=== PATIENT | female | born 1935 | race Caucasian/White ===

== ENCOUNTER 2017-10-07 16:55 | Inpatient (IN) | payer MEDICARE, OTHER ==
[~2017-10-07] VITALS: Ht 162.6 cm; Wt 62.8 kg
[~2017-10-07 16:55] MED LIST: ACET325 PO; ALBU.083IS; ALBU90OI6 INH; ALPR.25 PO; ALPR.5; ALPR1; ASPI81CH PO; ASPI81EC PO; AZIT250 PO; BENZ100A PO; BUDE.25; BUDE.25 NEB; BUME1 PO; Biscolax10 MG PR; CARB150 PO; CEPH500 PO; CHOL10002; CHOL10002 PO; CLIN300 PO; CLOB.05TO TOP; CODGUAEL PO; CVS DISPOSABLE399 ML PR; CYAN500 PO; CYCL10 PO; Calcium Carb 51 EACH PO; Calcium Carbon500 MG PO; Calmoseptine Oi71 GM TP; Carbidopa-Levo1 EAC4 PO; DILT180ER PO; Evoxac30 MG PO; FENT25TP TOP; FEXPSEER; FISH1000; FLUO20; FLUO20 PO; FLUSAL5005; FLUT1DIS8 INH; FURO20 PO; G-FENESIN400 MG PO; GLUCHON; GUAIFENESIN DM1 EACH PO; HYDACE5 PO; HYDACE7.5 PO; HYDGUAL120 PO; Hair, Skin & N1 EACH PO; INS70/30PN SC; IPRAIS NEB; LEVE500 PO; LEVO750 PO; LISI5 PO; LISINOPRIL PO; LOPE2C PO; LOSA50 PO; LOSHYD; MAGCHL64ER PO; METF500 PO; MONT10T PO; MULTIVITAMIN PO; MULVITB&C PO; MULVITMINF; Milk Of Ma400 MG/5 M PO; NAPR250; NAPR500 PO; NAPR500EC PO; Norco 5-325 Ta1 EACH PO; OLME20; OMEP20ER; OMEP20ER PO; OTC STOOL SOFTENER; OXYACE5T PO; OXYB5 PO; PANT20; PRED10 PO; PRED20; PRED20 PO; PRIM50 PO; Prozac20 MG; RXCYCL10 PO; RXHYDACE PO; RXPRED10; SENN187 PO; SIMV40 PO; SPIR50 PO; THEO300ERA PO; THEO300ERB; UBID10; Ultram50 MG PO; VALS80; VENLAFAXINE HCL75 MG PO; VITAMIN D3 PO; VITAMIN D32000 UNIT PO; VITB100 PO; Vitamin B Comple1 EA PO; WARF4 PO; XARELTO15 MG PO; XARELTO20 MG PO; Zofran Odt8 MG SL
[2017-10-07 17:25] LABS: Calcium, Ionized (POC) 1.38 mmol/L (1.10-1.46); Chloride (POC) 126 mmol/L (98-108); Creatinine (POC) 1.2 mg/dL (0.6-1.0); Glucose (ISTAT POC) 175 mg/dL (70-99); Hemoglobin (POC) 16.7 g/dL (12.0-16.0); Potassium (POC) 3.3 mmol/L (3.5-5.5); Sodium (POC) 162 mmol/L (135-148); Total CO2 (POC) 27 mmol/L (21-32)
[2017-10-07 17:35] LABS: BASOPHILS ABSOLUTE AUTO 0.11 K/mm3 (0.00-0.23); BASOPHILS PERCENT AUTO 1 % (0-2); EOSINOPHILS PERCENT AUTO 0 % (0-6); Hematocrit 53.9 % (33.0-51.0); IMMATURE GRAN ABSOLUTE AUTO 0.51 K/mm3 (0.00-0.10); IMMATURE GRAN PERCENT AUTO 3 % (0-1); LYMPHOCYTES ABSOLUTE AUTO 2.28 K/mm3 (0.84-5.20); LYMPHOCYTES PERCENT AUTO 13 % (21-46); MONOCYTES ABSOLUTE AUTO 1.91 K/mm3 (0.16-1.47); MONOCYTES PERCENT AUTO 11 % (4-13); Mean Corpuscular HGB 27.4 pg (26.0-34.0); Mean Corpuscular HGB Conc 29.7 g/dL (31.5-36.5); Mean Platelet Volume 10.7 fL (9.1-12.4); NEUTROPHILS ABSOLUTE AUTO 13.34 K/mm3 (1.96-9.15); NEUTROPHILS PERCENT AUTO 74 % (41-73); Platelet Count 239 K/mm3 (150-400); RDW Coefficient Variation 16.6 % (11.7-14.2); RDW Standard Deviation 56.3 fL (35.1-46.3); Red Blood Cell Count 5.83 M/mm3 (3.80-5.20); White Blood Cell Count 18.15 K/mm3 (4.00-11.30)
[2017-10-07 17:37] LABS: Mean Corpuscular Volume 93 fL (80-100)
[2017-10-07 18:00] LABS: Source, Urine Catheter
[2017-10-07] MEDS ORDERED: ATOR20 PO (18:01)
[2017-10-07 18:15] LABS: Appearance, Urine Cloudy (Clear); Bilirubin, Urine Neg (Neg); Blood, Urine 5+ (Neg); Color, Urine Yellow (P-Yellow); Glucose Qualitative, Urine Neg (Neg); Ketones, Urine Neg (Neg); Leukocyte Esterase, Urine 3+ (Neg); Nitrite, Urine Neg (Neg); Protein, Urine 2+ (Neg); Specific Gravity, Urine 1.025 (1.003-1.022); Urobilinogen, Urine 1+ (Normal)
[2017-10-07 18:38] LABS: White Blood Cells, Urine TNTC /hpf (0-5)
[2017-10-07 18:39] LABS: Bacteria Many /hpf; Squamous Epithelial Cells Mod /hpf (Few)
[2017-10-07 18:59] LABS: Troponin I 0.027 ng/mL (0.000-0.040)
[2017-10-07 19:08] LABS: Albumin, Blood 3.1 g/dL (3.4-5.0); Albumin/Globulin Ratio 0.7 (0.8-1.8); Bilirubin, Total 0.7 mg/dL (0.1-1.0); Bun/Creatinine Ratio 56.3 (12.0-20.0); Calcium, Blood 10.6 mg/dL (8.5-10.1); Creatinine, Blood 1.03 mg/dL (0.40-1.00); Globulin, Blood 4.2 g/dL (2.2-4.0); Potassium, Blood 3.2 mmol/L (3.5-5.5); Total Protein, Blood 7.3 g/dL (6.4-8.2)
[2017-10-07] MEDS ORDERED: FAMO20 PO (19:58)
[2017-10-08 01:45] LABS: BASOPHILS ABSOLUTE AUTO 0.05 K/mm3 (0.00-0.23); BASOPHILS PERCENT AUTO 0 % (0-2); EOSINOPHILS ABSOLUTE AUTO 0.02 K/mm3 (0.00-0.68); EOSINOPHILS PERCENT AUTO 0 % (0-6); Hematocrit 49.6 % (33.0-51.0); Hemoglobin 14.8 g/dL (11.5-16.0); IMMATURE GRAN ABSOLUTE AUTO 0.56 K/mm3 (0.00-0.10); IMMATURE GRAN PERCENT AUTO 3 % (0-1); LYMPHOCYTES ABSOLUTE AUTO 1.98 K/mm3 (0.84-5.20); LYMPHOCYTES PERCENT AUTO 12 % (21-46); MONOCYTES PERCENT AUTO 10 % (4-13); Mean Corpuscular HGB 27.7 pg (26.0-34.0); Mean Corpuscular HGB Conc 29.8 g/dL (31.5-36.5); Mean Corpuscular Volume 93 fL (80-100); Mean Platelet Volume 10.8 fL (9.1-12.4); NEUTROPHILS ABSOLUTE AUTO 12.48 K/mm3 (1.96-9.15); NEUTROPHILS PERCENT AUTO 75 % (41-73); Platelet Count 191 K/mm3 (150-400); RDW Coefficient Variation 16.5 % (11.7-14.2); RDW Standard Deviation 55.8 fL (35.1-46.3); Red Blood Cell Count 5.35 M/mm3 (3.80-5.20); White Blood Cell Count 16.69 K/mm3 (4.00-11.30)
[2017-10-08 02:07] LABS: Alanine Aminotransfer (ALT/SGP 41 U/L (12-78); Albumin, Blood 2.8 g/dL (3.4-5.0); Albumin/Globulin Ratio 0.7 (0.8-1.8); Alk Phos 93 U/L (50-136); Anion Gap 6 mmol/L (6-16); Aspartate Aminotrans (AST/SGOT 34 U/L (12-37); Bilirubin, Total 0.5 mg/dL (0.1-1.0); Blood Urea Nitrogen 51 mg/dL (8-24); Bun/Creatinine Ratio 60.7 (12.0-20.0); CO2, Blood 28 mmol/L (21-32); CPK Creatine Kinase 112 U/L (26-193); Calcium, Blood 9.8 mg/dL (8.5-10.1); Chloride, Blood 124 mmol/L (98-108); Creatinine, Blood 0.84 mg/dL (0.40-1.00); Globulin, Blood 4.1 g/dL (2.2-4.0); Glomerular Filtration Rate >60 (60-); Glucose, Blood 187 mg/dL (70-99); Potassium, Blood 3.7 mmol/L (3.5-5.5); Sodium, Blood 158 mmol/L (136-145); Total Protein, Blood 6.9 g/dL (6.4-8.2)
[2017-10-08 09:41] LABS: Anion Gap 6 mmol/L (6-16); Blood Urea Nitrogen 46 mg/dL (8-24); Bun/Creatinine Ratio 57.5 (12.0-20.0); CO2, Blood 28 mmol/L (21-32); CPK Creatine Kinase 129 U/L (26-193); Calcium, Blood 10.1 mg/dL (8.5-10.1); Chloride, Blood 122 mmol/L (98-108); Glomerular Filtration Rate >60 (60-); Glucose, Blood 173 mg/dL (70-99); Potassium, Blood 3.6 mmol/L (3.5-5.5); Sodium, Blood 156 mmol/L (136-145); Troponin I 0.024 ng/mL (0.000-0.040)
[2017-10-08 13:28] LABS: Anion Gap 4 mmol/L (6-16); Blood Urea Nitrogen 44 mg/dL (8-24); Bun/Creatinine Ratio 57.8 (12.0-20.0); CO2, Blood 29 mmol/L (21-32); Calcium, Blood 10.3 mg/dL (8.5-10.1); Chloride, Blood 120 mmol/L (98-108); Creatinine, Blood 0.76 mg/dL (0.40-1.00); Glomerular Filtration Rate >60 (60-); Glucose, Blood 166 mg/dL (70-99); Potassium, Blood 3.6 mmol/L (3.5-5.5); Sodium, Blood 153 mmol/L (136-145)
[2017-10-08 20:25] LABS: Anion Gap 6 mmol/L (6-16); Blood Urea Nitrogen 38 mg/dL (8-24); Bun/Creatinine Ratio 53.8 (12.0-20.0); CO2, Blood 27 mmol/L (21-32); Calcium, Blood 10.1 mg/dL (8.5-10.1); Chloride, Blood 118 mmol/L (98-108); Creatinine, Blood 0.71 mg/dL (0.40-1.00); Glomerular Filtration Rate >60 (60-); Glucose, Blood 153 mg/dL (70-99); Potassium, Blood 3.5 mmol/L (3.5-5.5); Sodium, Blood 151 mmol/L (136-145)
[2017-10-09 02:30] LABS: Anion Gap 6 mmol/L (6-16); Blood Urea Nitrogen 36 mg/dL (8-24); Bun/Creatinine Ratio 50.9 (12.0-20.0); CO2, Blood 28 mmol/L (21-32); Calcium, Blood 9.7 mg/dL (8.5-10.1); Chloride, Blood 121 mmol/L (98-108); Creatinine, Blood 0.71 mg/dL (0.40-1.00); Glomerular Filtration Rate >60 (60-); Glucose, Blood 115 mg/dL (70-99); Potassium, Blood 3.6 mmol/L (3.5-5.5); Sodium, Blood 155 mmol/L (136-145)
[2017-10-09 08:53] LABS: Anion Gap 6 mmol/L (6-16); Blood Urea Nitrogen 34 mg/dL (8-24); Bun/Creatinine Ratio 49.9 (12.0-20.0); CO2, Blood 28 mmol/L (21-32); Calcium, Blood 10.3 mg/dL (8.5-10.1); Chloride, Blood 120 mmol/L (98-108); Creatinine, Blood 0.68 mg/dL (0.40-1.00); Glomerular Filtration Rate >60 (60-); Glucose, Blood 121 mg/dL (70-99); Potassium, Blood 3.8 mmol/L (3.5-5.5); Sodium, Blood 154 mmol/L (136-145)
[2017-10-09 15:40] LABS: Anion Gap 6 mmol/L (6-16); Blood Urea Nitrogen 32 mg/dL (8-24); Bun/Creatinine Ratio 45.8 (12.0-20.0); CO2, Blood 28 mmol/L (21-32); Calcium, Blood 10.1 mg/dL (8.5-10.1); Chloride, Blood 118 mmol/L (98-108); Glomerular Filtration Rate >60 (60-); Glucose, Blood 159 mg/dL (70-99); Potassium, Blood 3.6 mmol/L (3.5-5.5); Sodium, Blood 152 mmol/L (136-145)
[2017-10-09 20:24] LABS: Anion Gap 6 mmol/L (6-16); Blood Urea Nitrogen 31 mg/dL (8-24); Bun/Creatinine Ratio 47.6 (12.0-20.0); CO2, Blood 29 mmol/L (21-32); Calcium, Blood 9.5 mg/dL (8.5-10.1); Chloride, Blood 116 mmol/L (98-108); Creatinine, Blood 0.65 mg/dL (0.40-1.00); Glomerular Filtration Rate >60 (60-); Glucose, Blood 196 mg/dL (70-99); Potassium, Blood 3.5 mmol/L (3.5-5.5); Sodium, Blood 151 mmol/L (136-145)
[2017-10-10 05:46] LABS: Magnesium, Blood 2.1 mg/dL (1.6-2.4); Phosphorus, Blood 2.6 mg/dL (2.5-4.9); Triglycerides 95 mg/dL (30-160)
[2017-10-11 06:02] LABS: BASOPHILS ABSOLUTE AUTO 0.03 K/mm3 (0.00-0.23); BASOPHILS PERCENT AUTO 0 % (0-2); EOSINOPHILS PERCENT AUTO 3 % (0-6); Hematocrit 38.6 % (33.0-51.0); Hemoglobin 12.1 g/dL (11.5-16.0); IMMATURE GRAN ABSOLUTE AUTO 0.43 K/mm3 (0.00-0.10); IMMATURE GRAN PERCENT AUTO 3 % (0-1); LYMPHOCYTES ABSOLUTE AUTO 1.43 K/mm3 (0.84-5.20); LYMPHOCYTES PERCENT AUTO 11 % (21-46); MONOCYTES ABSOLUTE AUTO 0.73 K/mm3 (0.16-1.47); MONOCYTES PERCENT AUTO 6 % (4-13); Mean Corpuscular HGB 27.4 pg (26.0-34.0); Mean Corpuscular HGB Conc 31.3 g/dL (31.5-36.5); Mean Platelet Volume 11.9 fL (9.1-12.4); NEUTROPHILS ABSOLUTE AUTO 9.72 K/mm3 (1.96-9.15); NEUTROPHILS PERCENT AUTO 76 % (41-73); Platelet Count 134 K/mm3 (150-400); RDW Coefficient Variation 14.9 % (11.7-14.2); RDW Standard Deviation 47.5 fL (35.1-46.3); Red Blood Cell Count 4.41 M/mm3 (3.80-5.20); White Blood Cell Count 12.74 K/mm3 (4.00-11.30)
[2017-10-11 06:30] LABS: Magnesium, Blood 2.3 mg/dL (1.6-2.4)
[2017-10-11 06:44] LABS: Mean Corpuscular Volume 88 fL (80-100)
[2017-10-11 07:00] LABS: Anion Gap 7 mmol/L (6-16); Blood Urea Nitrogen 18 mg/dL (8-24); Bun/Creatinine Ratio 43.6 (12.0-20.0); CO2, Blood 28 mmol/L (21-32); Calcium, Blood 8.3 mg/dL (8.5-10.1); Chloride, Blood 103 mmol/L (98-108); Creatinine, Blood 0.41 mg/dL (0.40-1.00); Glomerular Filtration Rate >60 (60-); Glucose, Blood 323 mg/dL (70-99); Phosphorus, Blood 4.1 mg/dL (2.5-4.9); Potassium, Blood 5.2 mmol/L (3.5-5.5)
[2017-10-11 07:38] LABS: Sodium, Blood 138 mmol/L (136-145)
[2017-10-11 16:08] LABS: Source, Urine Clean Catch
[2017-10-11 16:16] LABS: Appearance, Urine Hazy (Clear); Bilirubin, Urine Neg (Neg); Blood, Urine 2+ (Neg); Color, Urine Yellow (P-Yellow); Glucose Qualitative, Urine Neg (Neg); Ketones, Urine Neg (Neg); Leukocyte Esterase, Urine 3+ (Neg); Nitrite, Urine Neg (Neg); Protein, Urine Neg (Neg); Urobilinogen, Urine NORM (Normal)
[2017-10-11 16:23] LABS: Bacteria Many /hpf; Red Blood Cells, Urine 0-2 /hpf (0-2); Squamous Epithelial Cells Many /hpf (Few); White Blood Cells, Urine 50-100 /hpf (0-5)
[2017-10-12 05:13] LABS: Magnesium, Blood 2.1 mg/dL (1.6-2.4); Phosphorus, Blood 2.8 mg/dL (2.5-4.9)
[2017-10-14 06:21] LABS: Anion Gap 5 mmol/L (6-16); Blood Urea Nitrogen 18 mg/dL (8-24); Bun/Creatinine Ratio 41.4 (12.0-20.0); CO2, Blood 28 mmol/L (21-32); Calcium, Blood 9.1 mg/dL (8.5-10.1); Chloride, Blood 104 mmol/L (98-108); Creatinine, Blood 0.44 mg/dL (0.40-1.00); Glomerular Filtration Rate >60 (60-); Glucose, Blood 117 mg/dL (70-99); Potassium, Blood 4.3 mmol/L (3.5-5.5); Sodium, Blood 137 mmol/L (136-145)
[2017-10-17 05:12] LABS: Triglycerides 115 mg/dL (30-160)
== END 2017-10-29 15:45 | DRG 56 ==
LOC: ER 16:55 → MEDS 19:52
PROVIDERS: Emergency Medicine; Internal Medicine
DX: I69.391 Dysphagia following cerebral infarction (principal); J96.01 Acute respiratory failure with hypoxia; C79.11 Secondary malignant neoplasm of bladder; J68.0 Bronchitis and pneumonitis due to chemicals, gases, fumes and vapors; D63.0 Anemia in neoplastic disease; E03.9 Hypothyroidism, unspecified; G47.33 Obstructive sleep apnea (adult) (pediatric); I10 Essential (primary) hypertension; Z87.440 Personal history of urinary (tract) infections; Z92.21 Personal history of antineoplastic chemotherapy; Z66 Do not resuscitate; Z51.5 Encounter for palliative care; F41.9 Anxiety disorder, unspecified; T45.1X5A Adverse effect of antineoplastic and immunosuppressive drugs, initial encounter; Z87.891 Personal history of nicotine dependence
CPT/HCPCS: 36415; 70450; 71010; 80047; 80048; 80053; 80069; 81001; 82140; 82550; 82947; 83735; 84100; 84478; 84484; 85014; 85025; 87086; 92526; 92610; 93005; 93010; 94640; 94760; 96365; 96366; 96368; 96375; 99285; C1751; G8996; G8997; J0696; J1650; J2001; J2060; J2270; J3480; J7050; J7060; J7070; P9612